=== PATIENT | female | born 1960 | race Caucasian/White ===

== ENCOUNTER 2021-08-14 10:34 | Emergency (ER) | payer OTHER, SELFPAY ==
[2021-08-14 11:10] VITALS: BP 146/94; PULSE 88; RESP 18; TEMP 37.4; O2SAT 95; BMI 27.2
--- NOTE | 2021-08-14 11:16 | HMH.EDUTC ---
[facility] [place] Disposition Clinical Impression: Post-nasal drip, Viral syndrome Acute bronchitis Qualifiers: Bronchitis organism: unspecified organism Qualified Code(s): J20.9 - Acute bronchitis, unspecified Allergic rhinitis Qualifiers: Allergic rhinitis trigger: unspecified Allergic rhinitis seasonality: unspecified Qualified Code(s): J30.9 - Allergic rhinitis, unspecified Disposition: Home, Self-Care Condition on Discharge: Good Instructions: DI for COVID-19 (Suspected or Confirmed ), Preventing the Spread of Coronavirus Discharge Instructions Additional Instructions: Drink plenty of fluids. Take tylenol or ibuprofen for pain or fever. Take the medications as directed. Take the tessalon perles (BENZONATATE capsules) for cough, if needed. Follow up with your regular doctor. GO TO THE ER FOR ANY WORSENING SYMPTOMS Quarantine until you know the results of your covid-19 test. Notify your school or workplace of your results and follow their instructions regarding return to work/school. I put in a referral to Dr. Echeverria (ENT) for further evaluation of your throat complaints. Please follow up with her for this. Prescriptions: Albuterol Sulfate [Albuterol Sulfate Hfa] 2 puffs IH Q6HP PRN 30 Days #1 each PRN Reason: Shortness Of Breath Transmission Status: Received by [facility] # Benzonatate [Benzonatate 100mg cap] 100 mg PO TIDP PRN #30 cap PRN Reason: Cough Transmission Status: Received by [facility] # methylPREDNISolone [Medrol] 4 mg PO DIRECTED 6 Days #21 packet Transmission Status: Received by [facility] # Azithromycin [Z-Paco 250mg Tab*] 250 mg PO UD DOSE PK #6 tab Transmission Status: Received by [facility] # Referrals: Provider,MD Jose Alfredo [Primary Care Provider] - Savanna Echeverria MD [Consulting Physician] - Time of Disposition: 12:07 Medical Decision Making - Medical Records Medical records reviewed: No: I reviewed the patient's medical records. - Julio Inquiry Pt receiving controlled substance: No Vital Signs: 08/14/21 11:10 08/14/21 12:10 Temperature 99.4 F 99.0 F Temperature Source Oral Oral Pulse Rate 78 Pulse Rate [Right Brachial] 88 Respiratory Rate 18 18 Blood Pressure 146/94 H Blood Pressure [Right Arm] 146/94 H Blood Pressure Mean [Right Arm] 111 Blood Pressure Source [Right Arm] Automatic Cuff Blood Pressure Position [Right Arm] Sitting 02 Sat by Pulse Oximetry 95 Oxygen Delivery Method Room Air Room Air - Lab Data Lab results reviewed: Yes: I reviewed the patient's lab results. Orders (Tests/Meds): ORDERS Category Date Time Status Covid-19 Nasal PCR ([facility]) Routine Lab 08/14/21 11:00 Received [facility] [place] HPI - General Stated complaint: congestion Time Seen by Provider: 08/14/21 11:16 Mode of Arrival: Ambulatory Source of Information: Patient Limitations: No Limitations Description of Symptoms (Recalled from Triage Doc. by RN): congestion, wheezing, possible fever, weakness HEENT Symptoms (Recalled from RN notes): Yes Resp Symptoms (Recalled from RN notes): Yes Skin Symptoms (Recalled from RN notes): No MS Symptoms (Recalled from RN notes): No Functional Status (Recalled from RN notes): n/a - History of Present Illness Provider Complaint: He is here with complaints of having worsening chest congestion for the past 4 to 5 days. He has been coughing up yellowish sputum also. He denies documented fever at home, but he has had some chilling. He also has a scratchy sore throat and he has felt kind of bad, but not horribly bad (he states). He has been fully vaccinated against covid-19. He travels by airplane frequently for his job. He denies any documented exposures to covid-19. He has never had covid-19 before. - Related Data Home Medications Medication Instructions Recorded Confirmed Fluticasone Propionate [Flonase 1 spray NS DAILY 08/14/21 08/14/21 Allergy Relief NS]
[2021-08-14 12:10] VITALS: BP 146/94; PULSE 78; RESP 18; TEMP 37.2
== END 2021-08-14 12:10 | disposition home or self-care (01) ==
PROVIDERS: Emergency Provider Nurse Practitioner Family
DX: J20.9 Acute bronchitis, unspecified (principal); J30.9 Allergic rhinitis, unspecified; B34.9 Viral infection, unspecified
CPT/HCPCS: 99202; C9803; G0463; U0003; U0005

== ENCOUNTER 2021-11-17 10:36 | Emergency (ER) | payer OTHER, SELFPAY ==
[2021-11-17 10:40] VITALS: BP 148/91; PULSE 78; RESP 19; TEMP 36.6; O2SAT 98; BMI 27.2
[2021-11-17 11:04] VITALS: BP 148/91; PULSE 78; RESP 19; TEMP 36.6; O2SAT 98
--- NOTE | 2021-11-17 11:12 | HMH.EDUTC ---
[facility] [place] Clinical Impression: Acute bronchitis Qualifiers: Bronchitis organism: unspecified organism Qualified Code(s): J20.9 - Acute bronchitis, unspecified Sinusitis Qualifiers: Sinusitis location: unspecified location Chronicity: unspecified Qualified Code(s): J32.9 - Chronic sinusitis, unspecified Disposition: Home, Self-Care Condition on Discharge: Good Instructions: Sinusitis, DI for Sinusitis, DI for Acute Bronchitis Additional Instructions: ? Start antibiotic today. Be sure to complete entire prescription even if feeling better ? Monitor temp. Tylenol every 4 hours as needed and / or ibuprofen every 6 hours as needed ( As long as your primary care physician has told you that it ok to take both. For fever/aches/pains ER if no less than 101 despite Tylenol or Motrin ? Humidifier/vaporizer or hot steamy shower ? Inhaler every 4-6 hours as needed like we discussed. If unsure how to use it, ask pharmacist to demonstrate how. Should help open airways and improve cough, wheezing, and shortness of breath ? Mucinex for your cough and cough suppressant like Robitussin only at night. Be sure to drink lots of water. *Start steroid today. Helps with inflammation therefore, cough and wheezing. Follow directions on the package. Reviewed side effects. Patient reports taking them before. Follow up IMMEDIATELY for new or worsening of symptoms OR no noticeable improvement over the next 48-72 hours. 911 immediately for any life threatening symptoms such as chest pain or difficulty breathing Prescriptions: guaiFENesin [Mucinex 600mg tablet] 1 - 2 tab PO Q12HP PRN #20 tab PRN Reason: Congestion Transmission Status: Pending to [facility] # Cefdinir [Omnicef 300mg Capsule] 300 mg PO BID #20 cap Transmission Status: Pending to [facility] # predniSONE [Prednisone 20mg Tab] 20 mg PO BID #10 tab Transmission Status: Pending to [facility] # Referrals: Provider,Referral, [Primary Care Provider] - As needed Time of Disposition: 11:32 Medical Decision Making - Julio Inquiry Pt receiving controlled substance: No Julio was queried for this patient: No Vital Signs: 11/17/21 10:40 11/17/21 11:04 Temperature 97.8 F 97.8 F Temperature Source Oral Pulse Rate 78 Pulse Rate [Right Brachial] 78 Respiratory Rate 19 19 Blood Pressure 148/91 H Blood Pressure [Right Arm] 148/91 H Blood Pressure Mean [Right Arm] 110 Blood Pressure Source [Right Arm] Automatic Cuff Blood Pressure Position [Right Arm] Sitting 02 Sat by Pulse Oximetry 98 Oxygen Delivery Method Room Air Medical Decision Narrative: discussed chest xray and patient declined [facility] [place]PI - General Stated complaint: SOA, congestion Time Seen by Provider: 11/17/21 11:13 Mode of Arrival: Ambulatory Source of Information: Patient Limitations: No Limitations Description of Symptoms (Recalled from Triage Doc. by RN): PATIENT C/O CONGESTION, COUGH AND SOA X 4 DAYS HEENT Symptoms (Recalled from RN notes): No Resp Symptoms (Recalled from RN notes): Yes Skin Symptoms (Recalled from RN notes): No MS Symptoms (Recalled from RN notes): No Functional Status (Recalled from RN notes): WNL - History of Present Illness Provider Complaint: Patient states that he has been having sinus congestion and pressure along with drainage in the back of his throat and worried he may be trying to set up Bronchitis so he came in to get checked out - Related Data Home Medications Medication Instructions Recorded Confirmed Fluticasone Propionate [Flonase 1 spray NS DAILY 08/14/21 08/14/21 Allergy Relief NS] Previous Rx's Medication Instructions Recorded Albuterol Sulfate [Albuterol 2 puffs IH Q6HP PRN 30 Days #1 each 08/14/21 Sulfate Hfa] Azithromycin [Z-Paco 250mg Tab*] 250 mg PO UD DOSE PK #6 tab 08/14/21 Benzonatate [Benzonatate 100mg 100 mg PO TIDP PRN #30 cap 08/14/21 cap] methylPREDNISolone [Medrol] 4
== END 2021-11-17 11:30 | disposition home or self-care (01) ==
PROVIDERS: Emergency Provider Nurse Practitioner
DX: J20.9 Acute bronchitis, unspecified (principal); J32.9 Chronic sinusitis, unspecified
CPT/HCPCS: 99212; G0463

== ENCOUNTER 2022-01-27 11:05 | Emergency (ER) | payer OTHER, SELFPAY ==
[2022-01-27 11:10] VITALS: BP 147/71; PULSE 59; RESP 18; TEMP 36.4; O2SAT 98; BMI 26.5
--- NOTE | 2022-01-27 11:25 | HMH.EDUTC ---
[facility] [place] Disposition Clinical Impression: Acute bronchitis Qualifiers: Bronchitis organism: other organism Qualified Code(s): J20.8 - Acute bronchitis due to other specified organisms Disposition: Home, Self-Care Condition on Discharge: Good Instructions: DI for Acute Bronchitis Additional Instructions: Start antibiotic today. Be sure to complete entire prescription even if feeling better Tylenol and ibuprofen as needed for pain or fever Humidifier/vaporizer/hot steamy shower Follow-up with primary care this week Follow-up immediately in the ER of the [facility] for new or worsening symptoms or no noticeable improvement over the next 48-72 hours. Stop smoking Inhaler every 4-6 hours as needed. Should help open airways improved cough, wheezing, shortness of breath Start steroids today. Helps with inflammation therefore coughing and wheezing. Follow directions on package. Prescriptions: predniSONE [Prednisone 20mg Tab] 20 mg PO BID #10 tab Prescription Printed Azithromycin [Zithromax 250mg tab] 250 mg PO DIRECTED #6 tab Prescription Printed Referrals: Provider,Referral, [Primary Care Provider] - Time of Disposition: 11:44 Medical Decision Making - Julio Inquiry Pt receiving controlled substance: No Vital Signs: 01/27/22 11:10 Temperature 97.5 F L Temperature Source Oral Pulse Rate [Left Brachial] 59 L Respiratory Rate 18 Blood Pressure [Left Arm] 147/71 H Blood Pressure Mean [Left Arm] 96 Blood Pressure Source [Left Arm] Automatic Cuff Blood Pressure Position [Left Arm] Sitting 02 Sat by Pulse Oximetry 98 Oxygen Delivery Method Room Air [facility] [place] HPI - General Chief complaint: Urgent [facility] Center Stated complaint: soa Time Seen by Provider: 01/27/22 11:25 Mode of Arrival: Ambulatory Source of Information: Patient Limitations: No Limitations Description of Symptoms (Recalled from Triage Doc. by RN): PATIENT C/O SOA THAT IS WORSE AT NIGHT AND MUCOUS IN HIS THROAT. HE REPORTS SYMPTOMS HAVE BEEN INTERMITTEN FOR THE PAST SEVERAL MONTHS HEENT Symptoms (Recalled from RN notes): Yes Resp Symptoms (Recalled from RN notes): Yes Skin Symptoms (Recalled from RN notes): No MS Symptoms (Recalled from RN notes): No Functional Status (Recalled from RN notes): WNL - History of Present Illness Provider Complaint: 61 yr old male presents for cough,soa and feeling of mucus caught in throat that has been going on for over 4 months. pt states he is using his albuterol 2x a day to help with the soa. pt states this works. pt states over the last couple days he has noticed the soa increase and the mucus has worsened. - Related Data Home Medications Medication Instructions Recorded Confirmed Fluticasone Propionate [Flonase 1 spray NS DAILY 08/14/21 08/14/21 Allergy Relief NS] Previous Rx's Medication Instructions Recorded Albuterol Sulfate [Albuterol 2 puffs IH Q6HP PRN 30 Days #1 each 08/14/21 Sulfate Hfa] Azithromycin [Z-Paco 250mg Tab*] 250 mg PO UD DOSE PK #6 tab 08/14/21 Benzonatate [Benzonatate 100mg 100 mg PO TIDP PRN #30 cap 08/14/21 cap] methylPREDNISolone [Medrol] 4 mg PO DIRECTED 6 Days #21 08/14/21 packet Cefdinir [Omnicef 300mg Capsule] 300 mg PO BID #20 cap 11/17/21 guaiFENesin [Mucinex 600mg tablet] 1 - 2 tab PO Q12HP PRN #20 tab 11/17/21 predniSONE [Prednisone 20mg 20 mg PO BID #10 tab 11/17/21 Tab] Azithromycin [Zithromax 250mg 250 mg PO DIRECTED #6 tab 01/27/22 tab] predniSONE [Prednisone 20mg 20 mg PO BID #10 tab 01/27/22 Tab] Allergies Allergy/AdvReac Type Severity Reaction Status Date / Time No Known Allergies Allergy Verified 08/14/21 11:09 - Worker's Comp Is this a Worker's Comp case?: No [facility] History - Hepatitis A Screen Attestation statement:: This patient has been screened for Hepatitis A risk factors. I have reviewed the patient's past medical history: Yes - Social History Alcohol Intake: never Occupat
[2022-01-27 11:49] VITALS: BP 147/71; PULSE 59; RESP 18; TEMP 36.4; O2SAT 98
== END 2022-01-27 11:52 | disposition home or self-care (01) ==
PROVIDERS: Emergency Provider Nurse Practitioner Family
DX: R06.02 Shortness of breath; Z79.51 Long term (current) use of inhaled steroids; Z79.52 Long term (current) use of systemic steroids; Z79.899 Other long term (current) drug therapy
CPT/HCPCS: 99213; G0463

== ENCOUNTER 2022-04-03 08:27 | Emergency (ER) | payer OTHER, SELFPAY ==
[2022-04-03 08:30] VITALS: BP 148/90; PULSE 67; RESP 19; TEMP 36.4; O2SAT 98; BMI 26.5
--- NOTE | 2022-04-03 08:48 | EXP.UTC ---
Discharge Plan Disposition Patient Disposition: Home, Self-Care Condition: Good Prescriptions Prescriptions: New loratadine 10 mg tablet 10 mg PO DAILY Qty: 30 2RF Referrals Follow up/Referrals: Provider,Referral, MD [Primary Care Provider] - See instructions Clinical Impressions Clinical Impression: Allergic rhinitis Instructions Patient Instructions: Allergic Rhinitis Discharge ED Provider: Li Bal [facility] [place] HPI General Stated complaint: SOA, wheezing worsens when lying down Source of Information: Patient Limitations: No Limitations Time Seen by Provider: 04/03/22 08:47 History of Present Illness Provider Complaint: Pt relates that he feels a lot of drainage down the back of his throat at night when he lays down. He reports that it makes him sound as if he is wheezing and chokes him. He states that he will have lung issues from time to time and has taken allergy injections in the past. He denies taking any allergy medication currently. Related Data Previous Rx's Medication Instructions Recorded loratadine 10 mg tablet 10 mg PO DAILY #30 tabs 04/03/22 Allergies Allergy/AdvReac Type Severity Reaction Status Date / Time No Known Allergies Allergy Verified 08/14/21 11:09 [facility] Surgical History (Updated 04/03/22 @ 08:48 by Pretty Mckinney RN) History of splenectomy Social History Smoking Status: Unknown if ever smoked alcohol intake: never current occupational status: other Travel in the last 8 weeks: None ROS Obtained: Yes All systems reviewed & no additional complaints except as documented Constitutional Constitutional: Reports system reviewed and no additional complaints, except as documented Eyes Eyes: Reports system reviewed and no additional complaints, except as documented ENT Ears, Nose, Mouth, and Throat: Reports as per HPI, Reports nasal congestion, Reports nasal discharge and Reports post nasal drip Cardiovascular Cardiovascular: Reports system reviewed and no additional complaints, except as documented Respiratory Respiratory: Reports as per HPI, Reports cough and Reports wheezing Comments: states that it is more a noise in the back of his throat than from his lungs Gastrointestinal Gastrointestingal: Reports system reviewed and no additional complaints, except as documented Genitourinary Male Genitourinary: Reports system reviewed and no additional complaints, except as documented Musculoskeletal Musculoskeletal: Reports system reviewed and no additional complaints, except as documented Integumentary/Breasts Comments: Has bone on left forefinger and hand that he has been treating. Neurologic Neurologic: Reports system reviewed and no additional complaints, except as documented Endocrine Endocrine: Reports system reviewed and no additional complaints, except as documented Hematologic/Lymphatic Henatologic/Lymphatic: Reports system reviewed and no additional complaints, except as documented Allergic/Immunologic Allergic/Immunologic: Reports seasonal rhinorrhea and Reports wheezing Physical Exam General General appearance: alert Head Head exam: atraumatic and normocephalic Eye Eye exam: Present normal appearance Expanded ENT Exam Nasal speculum exam: Bilateral: other (clear drainage) Mouth exam: Present normal external inspection Teeth exam: Present normal inspection Comment: post nasal drip Neck Neck exam: Present normal inspection Chest Chest inspection: Present normal inspection and symmetric chest wall rise Respiratory Respiratory exam: Present normal lung sounds bilaterally; Absent respiratory distress or wheezes Cardiovascular Cardiovascular exam: Present regular rate Abdominal Exam Abdominal exam: Present soft Extremities Exam Extremities exam: Present normal inspection Neurological Exam Neurological exam: Present alert, oriented X3 and normal gait Psychiatric Psychiatric exam: Present normal affect and normal mood Expanded S
[2022-04-03 09:08] VITALS: BP 148/90; PULSE 67; RESP 19; TEMP 36.4; O2SAT 98
== END 2022-04-03 09:11 | disposition home or self-care (01) ==
PROVIDERS: Emergency Provider Nurse Practitioner Family
DX: J30.9 Allergic rhinitis, unspecified (principal)
CPT/HCPCS: 99212; G0463

== ENCOUNTER 2022-07-09 12:58 | Emergency (ER) | payer OTHER, SELFPAY ==
[2022-07-09 13:10] VITALS: BP 144/90; PULSE 76; RESP 18; TEMP 37; O2SAT 99; BMI 26.4
--- NOTE | 2022-07-09 13:54 | EXP.UTC ---
Discharge Plan Disposition Patient Disposition: Home, Self-Care Condition: Good Prescriptions Prescriptions: New methylprednisolone [Medrol (Paco)] 4 mg tablets,dose pack See Rx Instructions .Route .COMPLEX 6 Days Qty: 21 0RF Rx Instructions: taper pack; No Action loratadine 10 mg tablet 10 mg PO DAILY Qty: 30 2RF Referrals Follow up/Referrals: Provider,Referral, MD [Primary Care Provider] - See instructions Activity Restrictions/Add. Instructions Additional Instructions/Restrictions: *Ibuprofen lucy 6 hours with meal as needed for pain/inflammation *Remember you had a Toradol shot in the clinic today, which is similar to Motrin *Not additional anti-inflammatory like motrin, aleve, advil with the above amount of ibuprofen. You can still take Tylenol every 4 hours as needed if you need something else for pain moist heat every 20 minutes 3-4 times a day to affected area Start oral steriod tomorrow *Keep this area active, no movement leads to more stiffness, However take it easy and avoid heavy lifting pushing or pulling *Follow up with you family doctor if no improvement for further treatment Clinical Impressions Clinical Impression: Low back pain Qualifiers: Chronicity: unspecified Back pain laterality: right Sciatica presence: with sciatica Sciatica laterality: sciatica of right side Qualified Code(s): M54.41 - Lumbago with sciatica, right side Instructions Patient Instructions: DI for Low Back Pain, DI for Sciatica, DI for Back Pain With Sciatica Discharge ED Provider: Rochelle Ngo [facility] General Stated complaint: No accident, low back pain, painful to walk Mode of Arrival: Ambulatory Source of Information: Patient Limitations: No Limitations Time Seen by Provider: 07/09/22 13:54 Description of Symptoms (Recalled from Triage Doc. by RN): PATIENT C/O RIGHT LOWER BACK PAIN THAT RADIATES DOWN LEG X 2 DAYS HEENT Symptoms (Recalled from RN notes): No Resp Symptoms (Recalled from RN notes): No Skin Symptoms (Recalled from RN notes): No MS Symptoms (Recalled from RN notes): Yes Functional Status (Recalled from RN notes): WNL History of Present Illness Provider Complaint: Patient states that he travels alot and for the last week he has been having pain on off in his right lower back that goes into right hip and upper leg that has got worse over the last couple of days States that today he was still having pain so he came in to get checked Related Data Previous Rx's Medication Instructions Recorded loratadine 10 mg tablet 10 mg PO DAILY #30 tabs 04/03/22 methylprednisolone 4 mg tablets in See Rx Instructions .Route 07/09/22 a dose pack (Medrol (Paco)) .COMPLEX 6 days #21 tabs Allergies Allergy/AdvReac Type Severity Reaction Status Date / Time No Known Allergies Allergy Verified 08/14/21 11:09 Worker's Comp Is this a Worker's Comp case?: No [facility] Disclaimer: The information contained in this section may have been updated after the patient was seen, as this information can be updated by other users. Surgical History History of splenectomy Social History (Updated 07/09/22 @ 13:23 by Pretty Mckinney RN) Smoking Status: Unknown if ever smoked alcohol intake: never current occupational status: other Travel in the last 8 weeks: None ROS Obtained: Yes All systems reviewed & no additional complaints except as documented and Yes Systems reviewed as appropriate & no additional complaints except as documented Constitutional Constitutional: Reports system reviewed and no additional complaints, except as documented, Reports as per HPI, Denies body ache and Denies fever(s) ENT Ears, Nose, Mouth, and Throat: Reports system reviewed and no additional complaints, except as documented and Reports as per HPI Cardiovascular Cardiovascular: Reports system reviewed and no additional complaints, except as documented, Reports as
--- NOTE | 2022-07-09 14:04 | XR_ITS ---
FINAL REPORT CLINICAL HISTORY: low back pain no accident-- right side FINDINGS: AP and lateral views of the lumbar spine were obtained. There is no prior exam for comparison. There is no acute fracture or malalignment. Vertebral body height is preserved. There is multilevel degenerative disc disease, most pronounced at L5-S1. The paraspinal soft tissues are normal. IMPRESSION: 1. No acute osseous abnormality of the lumbar spine. 2. Multilevel degenerative disc disease, most pronounced at L5-S1. Reviewed, Interpreted and Dictated by Marium Payan MD Transcribed by Violetta Schulte Authenticated and [facility]
[2022-07-09 14:58] VITALS: BP 144/90; PULSE 76; RESP 18; TEMP 37; O2SAT 99
== END 2022-07-09 15:16 | disposition home or self-care (01) ==
PROVIDERS: Emergency Provider Nurse Practitioner
DX: M54.41 Lumbago with sciatica, right side (principal)
CPT/HCPCS: 72100; 96372; 99213; G0463

== ENCOUNTER 2023-09-20 13:48 | Emergency (ER) | payer OTHER, SELFPAY ==
--- NOTE | 2023-09-20 13:58 | EXP.UTC ---
Discharge Plan Disposition Patient Disposition: Home, Self-Care Condition: Good Prescriptions Prescriptions: New albuterol sulfate [Ventolin HFA] 90 mcg/actuation HFA aerosol inhaler 2 puff inhalation QIDP PRN (Reason: Wheezing) Qty: 1 0RF albuterol sulfate [Ventolin HFA] 90 mcg/actuation HFA aerosol inhaler 2 puff inhalation QIDP PRN (Reason: Wheezing) Qty: 1 0RF sulfamethoxazole-trimethoprim [Bactrim DS] 800-160 mg Tablet 1 tab PO Q12H Qty: 20 0RF Referrals Follow up/Referrals: Provider,Referral, MD [Primary Care Provider] - See instructions Activity Restrictions/Add. Instructions Additional Instructions/Restrictions: Keep clean and dry Remove sutures in 10 days Clinical Impressions Clinical Impression: Laceration of hand Instructions Patient Instructions: DI for Laceration Repair Discharge ED Provider: Laly Carreno [facility] [place] HPI General Stated complaint: cut on the left hand Time Seen by Provider: 09/20/23 14:30 History of Present Illness Provider Complaint: Laceration between 4th and 5th digits of right hand. Was cutting wood. Chainsaw was off but thinks he may have hit the blade. Onset (ago): hour(s) (1) Location: right and upper extremity Relieving factors: none Exacerbating factors: none Associated symptoms: denies other symptoms Treatments prior to arrival: none Related Data Previous Rx's Medication Instructions Recorded albuterol sulfate 90 mcg/actuation 2 puff inhalation QIDP PRN 09/20/23 aerosol inhaler (Ventolin HFA) Wheezing #1 ea albuterol sulfate 90 mcg/actuation 2 puff inhalation QIDP PRN 09/20/23 aerosol inhaler (Ventolin HFA) Wheezing #1 ea sulfamethoxazole 800 1 tab PO Q12H #20 tabs 09/20/23 mg-trimethoprim 160 mg tablet (Bactrim DS) Allergies Allergy/AdvReac Type Severity Reaction Status Date / Time No Known Allergies Allergy Verified 08/14/21 11:09 [facility] Disclaimer: The information contained in this section may have been updated after the patient was seen, as this information can be updated by other users. Surgical History History of splenectomy Social History (Updated 07/09/22 @ 13:23 by Pretty Mckinney RN) Smoking Status: Unknown if ever smoked alcohol intake: never current occupational status: other Travel in the last 8 weeks: None ROS Obtained: Yes All systems reviewed & no additional complaints except as documented Musculoskeletal Musculoskeletal: Reports as per HPI Physical Exam General General appearance: alert and in no apparent distress Neck Neck exam: Present normal inspection, full ROM and trachea midline; Absent meningismus or lymphadenopathy Chest Chest inspection: Present normal inspection and symmetric chest wall rise; Absent tenderness Respiratory Respiratory exam: Present normal lung sounds bilaterally; Absent respiratory distress Cardiovascular Cardiovascular exam: Present regular rate and normal rhythm; Absent JVD Extremities Exam Extremities exam: Present normal inspection, full ROM and normal capillary refill; Absent calf tenderness Expanded Upper Extremity Exam Right: Hand exam: Present laceration Hand L/R front image: 1. 2. Neuromotor exam: Normal fingers 2-5 abduction Vascular exam: Normal capillary refill, radial pulse and ulnar pulse Neurological Exam Neurological exam: Present alert and oriented X3 Psychiatric Psychiatric exam: Present normal affect and normal mood Skin Skin exam: Present warm, dry, intact and normal color Lymphatic Lymphatic Findings: no adenopathy Medical Decision Making Julio Inquiry Pt receiving controlled substance: No Radiology Data #1: Image(s): Hand Image Reviewed: Yes I reviewed the patient's radiology results Preliminary Findings: No Fracture Seen Procedures Laceration Laceration 1: Site: hand Side (If applicable): right Size (cm): 4 Description: flap and irregular Depth: simple, single layer Local Anesthetic: lidocaine 2% Amount of anesthesia used (mL): 5 Pre-repair: wound explored, irrigated extensively, deep structures intact and wound margins revised Skin layer closed with: nylon Size (cm): 3-0 Number of sutures: 7 Technique: simple, interrupted
[2023-09-20 14:00] VITALS: BP 153/98; PULSE 77; RESP 20; TEMP 36.8; O2SAT 98; BMI 27.2
[2023-09-20] MEDS: TET/DIPHTH/PERT-ADULT 0.5ML SYRINGE 0.5 ML IM (14:10)
--- NOTE | 2023-09-20 14:20 | XR_ITS ---
FINAL REPORT CLINICAL HISTORY: LACERATION/INJURY between 4 and 5th digit COMPARISON: None FINDINGS: Three views of the right hand show no evidence of acute displaced fracture or dislocation of the visualized bony architecture. The joint spaces appear normal. IMPRESSION: No acute bony abnormality. Reviewed, Interpreted and Dictated by Kianna Cheng MD Transcribed by BEN Coffey Authenticated and [facility]
[2023-09-20 15:17] VITALS: BP 153/98; PULSE 77; RESP 20; TEMP 36.8; O2SAT 98
--- NOTE | 2023-09-20 15:25 | PC.NURSE ---
LACERATION CLEANED AND DRY DRESSING APPLIED
== END 2023-09-20 15:28 | disposition home or self-care (01) ==
PROVIDERS: Emergency Provider Physician Assistant
DX: S61.411A Laceration without foreign body of right hand, initial encounter (principal); W31.2XXA Contact with powered woodworking and forming machines, initial encounter; Z23 Encounter for immunization
CPT/HCPCS: 12002; 73130; 90471; 90715; 99213; 99214; G0463

== ENCOUNTER 2023-10-05 12:37 | Emergency (ER) | payer OTHER, SELFPAY ==
[2023-10-05 13:10] VITALS: BP 132/86; PULSE 88; RESP 18; TEMP 36.8; O2SAT 98; BMI 24.4
[2023-10-05 13:18] VITALS: BP 132/86; PULSE 88; RESP 18; TEMP 36.8; O2SAT 98
== END 2023-10-05 13:20 | disposition home or self-care (01) ==
PROVIDERS: Emergency Provider Nurse Practitioner Family
DX: Z48.02 Encounter for removal of sutures (principal)

== ENCOUNTER 2023-10-18 18:00 | Outpatient (CLI) | payer OTHER, SELFPAY ==
[2023-10-18 17:54] LABS: Basophils # 0.1 K/mm3 (0-0.2); Basophils % 1.8 % (0.1-2.0); Eosinophils # 0.8 K/mm3 (0.0-0.4); Hematocrit 48.8 % (42.0-52.0); Hemoglobin 15.9 g/dL (14.1-18.0); Lymphocytes # 2.3 K/mm3 (0.7-4.5); Lymphocytes % 36.7 % (10-50); Mean Corpuscular HGB Conc 32.5 g/dL (31.8-35.4); Mean Corpuscular Volume 98.3 fl (80-94); Mean Platelet Volume 11.2 fl (7.4-10.4); Monocytes # 0.6 K/mm3 (0.1-1.0); Monocytes % 9.2 % (1.7-9.3); Neutrophils # 2.4 K/mm3 (1.8-7.8); Neutrophils % 39.4 % (37.0-80.0); Platelet Count 217 K/mm3 (142-424); Red Blood Count 4.96 M/mm3 (4.60-6.20); White Blood Count 6.1 K/mm3 (4.8-10.8)
[2023-10-18 18:07] LABS: Alanine Aminotransferase 51 U/L (12-78); Albumin/Globulin Ratio 1.3 (1.1-1.8); Alkaline Phosphatase 58 U/L (38-126); Anion Gap 11.3 mEq/L (5-15); Aspartate Amino Transferase 54 U/L (17-59); Bilirubin,Total 1.1 mg/dl (0.2-1.3); Blood Urea Nitrogen 19 mg/dl (9-20); Calcium 9.7 mg/dl (8.4-10.2); Carbon Dioxide 26 mmol/L (22.0-30.0); Chloride 106 mmol/L (98-107); Cholesterol 245 mg/dl (140-200); Estimated Glomerular Filt Rate 86 ml/min (>60); GFR (African American) 104 ML/MIN (>60); Globulin 3.2 g/dL (1.3-3.2); Glucose 93 mg/dl (74-100); HDL Cholesterol 83 mg/dl (40-60); Potassium 4.3 mmoL/L (3.5-5.1); Sodium 139 mmol/L (136-145); Total Protein,Serum 7.2 g/dl (6.3-8.2); Triglycerides 80 mg/dl (30-150); VLDL Cholesterol 16 mg/dL (0-40)
[2023-10-18 18:10] LABS: NT Pro Brain Natriuretic Pep. 26.5 pg/mL (0-125)
[2023-10-18 18:27] LABS: Direct LDL Cholesterol 124.63 mg/dL (100-129)
[2023-10-18 18:31] LABS: Thyroid Stimulating Hormone 2.13 uIU/mL (0.465-4.68)
[2023-10-18 18:58] LABS: Hemoglobin A1C 5.9 % (4.0-6.0)
== END 2023-10-18 23:59 | disposition home or self-care (01) ==
LOC: LAB.DROPOF 18:02
PROVIDERS: PCP Student in an Organized Health Care Education/Training Program; Visit Provider Student in an Organized Health Care Education/Training Program
DX: R05.9 Cough, unspecified (principal); R06.01 Orthopnea; Z13.29 Encounter for screening for other suspected endocrine disorder; Z13.1 Encounter for screening for diabetes mellitus; Z13.220 Encounter for screening for lipoid disorders
CPT/HCPCS: 80053; 80061; 83036; 83880; 84443; 85025

== ENCOUNTER 2023-10-19 13:16 | Outpatient (CLI) | payer OTHER, SELFPAY ==
--- NOTE | 2023-10-19 13:24 | XR_ITS ---
PROCEDURE INFORMATION: Exam: XR Chest Exam date and time: 10/19/2023 1:20 PM Age: 63 years old Clinical indication: Dyspnea TECHNIQUE: Imaging protocol: Radiologic exam of the chest. Views: 2 views. COMPARISON: No relevant prior studies available. FINDINGS: Lungs: Unremarkable. No consolidation. Pleural spaces: Unremarkable. No pleural effusion. No pneumothorax. Heart/Mediastinum: Unremarkable. No cardiomegaly. Vasculature: Unremarkable. Bones/joints: Unremarkable. IMPRESSION: No acute findings.
== END 2023-10-19 23:59 | disposition home or self-care (01) ==
LOC: RAD 13:17
PROVIDERS: PCP Student in an Organized Health Care Education/Training Program; Visit Provider Student in an Organized Health Care Education/Training Program
DX: R06.00 Dyspnea, unspecified (principal)
CPT/HCPCS: 71046

== ENCOUNTER 2023-11-08 07:40 | Outpatient (CLI) | payer SELFPAY ==
[2023-11-08] MEDS: ALBUTEROL 0.083% 2.5 MG/3 ML NEB IH (08:40)
== END 2023-11-08 23:59 | disposition home or self-care (01) ==
LOC: RT 07:43
PROVIDERS: Visit Provider Student in an Organized Health Care Education/Training Program
DX: R06.00 Dyspnea, unspecified (principal)
CPT/HCPCS: 94060; 94726; 94729

== ENCOUNTER 2024-08-03 09:14 | Outpatient (CLI) | payer OTHER, SELFPAY ==
--- NOTE | 2024-08-03 09:15 | CT_ITS ---
FINAL REPORT TECHNIQUE: Thin section axial CT images with coronal and sagittal reformats were performed through the neck. This study was performed with techniques to keep radiation doses as low as reasonably achievable (ALARA). Individualized dose reduction techniques using automated exposure control or adjustment of mA and/or kV according to the patient's size were employed. CLINICAL HISTORY: enlarged thyoid COMPARISON: None FINDINGS: There is mucosal thickening in the ethmoid and maxillary sinuses. There is a polyp or mucous retention cyst in the left maxillary sinus measuring 20 mm. The salivary glands are normal. There are numerous small lymph nodes throughout the neck all measuring less than 1 cm; however, this represents an excessive amount, probably benign reactive adenopathy. The larynx is unremarkable. The thyroid is atrophic without mass. IMPRESSION: Atrophic thyroid. Mild adenopathy bilateral upper neck, likely reactive based on an excessive number of small lymph nodes. Reviewed, Interpreted and Dictated by Kianna Cheng MD Transcribed by Liana Dhillon Authenticated and [facility]
== END 2024-08-03 23:59 | disposition home or self-care (01) ==
LOC: RAD 09:15
PROVIDERS: PCP Student in an Organized Health Care Education/Training Program; Visit Provider Nurse Practitioner
DX: E04.9 Nontoxic goiter, unspecified (principal)
CPT/HCPCS: 70490